=== PATIENT | male | born 2000 | race Caucasian/White ===

== ENCOUNTER → 2022-11-06 | Outpatient (CLI) | payer OTHER | LOC: WOUNDCARE 08:50 | PROVIDERS: ATTEND Family Medicine | DX: I96 Gangrene, not elsewhere classified (principal); S71.112A Laceration without foreign body, left thigh, initial encounter; V09.20XA Pedestrian injured in traffic accident involving unspecified motor vehicles, initial encounter; B95.4 Other streptococcus as the cause of diseases classified elsewhere; F17.298 Nicotine dependence, other tobacco product, with other nicotine-induced disorders | CPT/HCPCS: 11042; 11045; A6260; G0463 ==

== ENCOUNTER → 2022-11-08 | Outpatient (CLI) | payer OTHER | LOC: WOUNDCARE 08:24 | PROVIDERS: ATTEND Family Medicine | DX: T81.49XA Infection following a procedure, other surgical site, initial encounter (principal) | CPT/HCPCS: 97606; G0463 ==

== ENCOUNTER → 2022-11-11 | Outpatient (CLI) | payer OTHER | LOC: WOUNDCARE 08:23 | PROVIDERS: ATTEND Family Medicine | DX: S81.802A Unspecified open wound, left lower leg, initial encounter (principal); X58.XXXA Exposure to other specified factors, initial encounter | CPT/HCPCS: 97606; G0463 ==

== ENCOUNTER → 2022-11-13 | Outpatient (CLI) | payer OTHER | LOC: WOUNDCARE 10:31 | PROVIDERS: ATTEND Family Medicine | DX: I96 Gangrene, not elsewhere classified (principal); S71.112A Laceration without foreign body, left thigh, initial encounter; V09.20XA Pedestrian injured in traffic accident involving unspecified motor vehicles, initial encounter; B95.4 Other streptococcus as the cause of diseases classified elsewhere; F17.298 Nicotine dependence, other tobacco product, with other nicotine-induced disorders | CPT/HCPCS: 11042; 11045; 97606; G0463 ==

== ENCOUNTER → 2022-11-15 | Outpatient (CLI) | payer OTHER | LOC: WOUNDCARE 10:21 | PROVIDERS: ATTEND Family Medicine | DX: S81.802A Unspecified open wound, left lower leg, initial encounter (principal); X58.XXXA Exposure to other specified factors, initial encounter | CPT/HCPCS: 97606; G0463 ==

== ENCOUNTER → 2022-11-19 | Outpatient (CLI) | payer OTHER | LOC: WOUNDCARE 09:32 | PROVIDERS: ATTEND Family Medicine | DX: I96 Gangrene, not elsewhere classified (principal); S71.112A Laceration without foreign body, left thigh, initial encounter; B95.4 Other streptococcus as the cause of diseases classified elsewhere; F17.218 Nicotine dependence, cigarettes, with other nicotine-induced disorders; V09.20XA Pedestrian injured in traffic accident involving unspecified motor vehicles, initial encounter | CPT/HCPCS: 11042; 11045; 97606; G0463 ==

== ENCOUNTER → 2022-11-21 | Outpatient (CLI) | payer OTHER | LOC: WOUNDCARE 09:35 | PROVIDERS: ATTEND Family Medicine | DX: I96 Gangrene, not elsewhere classified (principal); T81.31XA Disruption of external operation (surgical) wound, not elsewhere classified, initial encounter; B99.9 Unspecified infectious disease | CPT/HCPCS: 97606; G0463 ==

== ENCOUNTER → 2022-11-25 | Outpatient (CLI) | payer OTHER | LOC: WOUNDCARE 08:39 | PROVIDERS: ATTEND Family Medicine | DX: I96 Gangrene, not elsewhere classified (principal); S71.112A Laceration without foreign body, left thigh, initial encounter; B95.4 Other streptococcus as the cause of diseases classified elsewhere; F17.218 Nicotine dependence, cigarettes, with other nicotine-induced disorders; V09.20XA Pedestrian injured in traffic accident involving unspecified motor vehicles, initial encounter | CPT/HCPCS: 11042; 11045; 97606; G0463 ==

== ENCOUNTER → 2022-11-27 | Outpatient (CLI) | payer OTHER | LOC: WOUNDCARE 09:32 | PROVIDERS: ATTEND Family Medicine | DX: T81.89XA Other complications of procedures, not elsewhere classified, initial encounter (principal) | CPT/HCPCS: 97606; G0463 ==

== ENCOUNTER → 2022-11-29 | Outpatient (CLI) | payer OTHER | LOC: WOUNDCARE 08:57 | PROVIDERS: ATTEND Family Medicine | DX: S71.112A Laceration without foreign body, left thigh, initial encounter (principal); V09.20XA Pedestrian injured in traffic accident involving unspecified motor vehicles, initial encounter; F17.298 Nicotine dependence, other tobacco product, with other nicotine-induced disorders | CPT/HCPCS: 87070; 87077; 87186; 87205; A6260; G0463; 99213 ==

== ENCOUNTER → 2022-12-20 | Outpatient (CLI) | payer OTHER | LOC: WOUNDCARE 08:58 | PROVIDERS: ATTEND Family Medicine | DX: S71.112A Laceration without foreign body, left thigh, initial encounter (principal); V09.20XA Pedestrian injured in traffic accident involving unspecified motor vehicles, initial encounter; F17.299 Nicotine dependence, other tobacco product, with unspecified nicotine-induced disorders | CPT/HCPCS: 99213 ==

== ENCOUNTER → 2022-12-27 | Outpatient (CLI) | payer OTHER | LOC: WOUNDCARE 09:09 | PROVIDERS: ATTEND Family Medicine | DX: S71.112A Laceration without foreign body, left thigh, initial encounter (principal); V09.20XA Pedestrian injured in traffic accident involving unspecified motor vehicles, initial encounter | CPT/HCPCS: 11042; 11045; G0463 ==

== ENCOUNTER → 2023-01-03 | Outpatient (CLI) | payer OTHER | LOC: WOUNDCARE 09:12 | PROVIDERS: ATTEND Family Medicine | DX: S71.112A Laceration without foreign body, left thigh, initial encounter (principal); I96 Gangrene, not elsewhere classified; V09.20XA Pedestrian injured in traffic accident involving unspecified motor vehicles, initial encounter | CPT/HCPCS: 11042; G0463 ==

== ENCOUNTER → 2023-01-10 | Outpatient (CLI) | payer OTHER | LOC: WOUNDCARE 09:14 | PROVIDERS: ATTEND Family Medicine | DX: S71.112A Laceration without foreign body, left thigh, initial encounter (principal); V09.20XA Pedestrian injured in traffic accident involving unspecified motor vehicles, initial encounter | CPT/HCPCS: 11042; A6212; G0463 ==

== ENCOUNTER → 2023-01-17 | Outpatient (CLI) | payer OTHER | LOC: WOUNDCARE 09:04 | PROVIDERS: ATTEND Family Medicine | DX: S71.112A Laceration without foreign body, left thigh, initial encounter (principal); V09.20XA Pedestrian injured in traffic accident involving unspecified motor vehicles, initial encounter | CPT/HCPCS: 11042; A6212; G0463 ==